=== PATIENT | male | born 1960 | race African-American/Black ===

== ENCOUNTER 2018-05-17 09:25 | Inpatient (IN) | payer MEDICAID ==
[~2018-05-17] VITALS: Ht 175.3 cm; Wt 88.9 kg
[~2018-05-17 09:25] MED LIST: AMLO5TAB4 PO; ASPI-1158 PO; CLON0.3T4; DILT30TA3 PO; FAMO-133; FINA5TAB11 PO; FLUT1DIS3; GUAI100S35; ISOS20TA8 PO; LISI10TA5 PO; LOSA50TA20 PO; NITR0.4T49; OCD PO; PRAV20TA57 PO; SIMV40TA2 PO
[2018-05-17] MEDS ORDERED: ASPIRIN 81MG TABLET PO ONE (10:15)
[2018-05-17] MEDS ORDERED: ONDANSETRON HCL 4MG/2ML INJ IV ONE (12:00)
[2018-05-17] MEDS ORDERED: LABETALOL HCL 20MG/4ML CARPUJECT IV ONE (12:00)
[2018-05-17 13:00] LABS: BASOPHILS % 0.4 % (0.0-2.0); EOSINOPHILS % 0.1 % (0.0-5.0); HEMATOCRIT. 47.5 % (42.0-52.0); LYMPHOCYTES % 12.3 % (20.0-50.0); MEAN CORPUSCULAR HEMOGLOBIN 31.6 pg (28.0-32.0); MEAN CORPUSCULAR VOLUME 93.7 fL (80.0-94.0); MEAN PLATELET VOLUME 8.3 fl (7.4-10.4); MONOCYTES % 7.6 % (2.0-8.0); NEUTROPHILS % 79.6 % (40.0-76.0); PLATELET 350 x1000/uL (130-400); RED BLOOD CELL COUNT 5.08 mill/uL (4.7-6.1); RED CELL DISTRIBUTION WIDTH 14.4 % (11.6-14.6)
[2018-05-17 13:07] LABS: CHLORIDE 96 mEq/L (98-107)
[2018-05-17] MEDS ORDERED: ONDANSETRON HCL 4MG/2ML INJ IV PRN (15:15)
[2018-05-17] MEDS ORDERED: MORPHINE SULFATE 4 MG/ML CPJ (NOT FOR IM USE) IV PRN (15:15)
[2018-05-17] MEDS ORDERED: ACETAMINOPHEN 325MG TABLET PO PRN (15:15)
[2018-05-17] MEDS ORDERED: IPRATROPIUM/ALBUTEROL 0.5-3(2.5)MG/3ML NEB HHN PRN (15:15)
[2018-05-17] MEDS: ONDANSETRON HCL 4MG/2ML INJ IV PRN (22:08)
[2018-05-17 23:00] VITALS: BP 173/108
[2018-05-17] MEDS: ATORVASTATIN CALCIUM 20MG TABLET PO SCH (23:25)
[2018-05-17] MEDS: HYDRALAZINE 20MG/ML VIAL IV PRN (23:26)
[2018-05-17] MEDS: ENOXAPARIN 30MG/0.3ML SYR SUBCUT SCH (23:26)
[2018-05-18] VITALS (8 sets, daily range): BP systolic 127–173; BP diastolic 90–108
[2018-05-18] MEDS: ONDANSETRON HCL 4MG/2ML INJ IV PRN (05:20)
[2018-05-18] MEDS: HYDRALAZINE 20MG/ML VIAL IV PRN (05:28)
[2018-05-18 07:38] LABS: BASOPHILS % 0.4 % (0.0-2.0); EOSINOPHILS % 0.2 % (0.0-5.0); HEMATOCRIT. 49.5 % (42.0-52.0); HEMOGLOBIN. 16.6 g/dL (14.0-18.0); LYMPHOCYTES % 7.9 % (20.0-50.0); MEAN CORPUSCULAR HEMOGLOBIN 31.3 pg (28.0-32.0); MEAN CORPUSCULAR VOLUME 93.3 fL (80.0-94.0); MEAN PLATELET VOLUME 7.8 fl (7.4-10.4); MONOCYTES % 7.4 % (2.0-8.0); NEUTROPHILS % 84.1 % (40.0-76.0); PLATELET 347 x1000/uL (130-400); RED BLOOD CELL COUNT 5.31 mill/uL (4.7-6.1); RED CELL DISTRIBUTION WIDTH 14.5 % (11.6-14.6)
[2018-05-18 08:09] LABS: CHLORIDE 98 mEq/L (98-107)
[2018-05-18] MEDS ORDERED: NITROGLYCERIN OINT 1GM/INCH UDPKT TD SCH (09:00)
[2018-05-18] MEDS ORDERED: POTASSIUM CHLORIDE 20MEQ TABLET SR PO NR (09:00)
[2018-05-18] MEDS: LOSARTAN POTASSIUM 50 MG TABLET PO SCH (10:22)
[2018-05-18] MEDS: ASPIRIN 81MG TABLET PO SCH (10:22)
[2018-05-18] MEDS: CLONIDINE 0.1MG TABLET PO SCH ×3 (10:27→23:09)
[2018-05-18] MEDS: ENOXAPARIN 30MG/0.3ML SYR SUBCUT SCH (13:25)
[2018-05-18] MEDS: METHYLPREDNISOLONE SOD SUCC 40 MG/ML VIAL IV SCH ×2 (17:37→23:09)
[2018-05-18] MEDS: PANTOPRAZOLE 40MG DR TABLET PO SCH (17:37)
[2018-05-18] MEDS: DEXT 5%/0.45% NACL 1000ML 1,000 ML IV SCH (17:40)
[2018-05-18] MEDS: BUDESONIDE 0.5MG/2ML NEB HHN SCH (22:10)
[2018-05-18] MEDS: IPRATROPIUM/ALBUTEROL 0.5-3(2.5)MG/3ML NEB HHN SCH (22:11)
[2018-05-18] MEDS: ATORVASTATIN CALCIUM 20MG TABLET PO SCH (23:09)
[2018-05-19] MEDS: IPRATROPIUM/ALBUTEROL 0.5-3(2.5)MG/3ML NEB HHN SCH ×3 (02:39→14:39)
[2018-05-19 04:30] VITALS: BP 125/83
[2018-05-19] MEDS: CLONIDINE 0.1MG TABLET PO SCH ×2 (05:09→15:30)
[2018-05-19] MEDS: PANTOPRAZOLE 40MG DR TABLET PO SCH (05:09)
[2018-05-19] MEDS: DEXT 5%/0.45% NACL 1000ML 1,000 ML IV SCH (05:10)
[2018-05-19 05:58] LABS: CHLORIDE 100 mEq/L (98-107)
[2018-05-19 06:22] LABS: HEMATOCRIT. 46.1 % (42.0-52.0); HEMOGLOBIN. 15.4 g/dL (14.0-18.0); MEAN CORPUSCULAR HEMOGLOBIN 31.4 pg (28.0-32.0); MEAN CORPUSCULAR VOLUME 93.7 fL (80.0-94.0); PLATELET 305 x1000/uL (130-400); RED BLOOD CELL COUNT 4.92 mill/uL (4.7-6.1); RED CELL DISTRIBUTION WIDTH 14.1 % (11.6-14.6)
[2018-05-19] MEDS: BUDESONIDE 0.5MG/2ML NEB HHN SCH (07:51)
[2018-05-19 08:35] VITALS: BP 132/97
[2018-05-19] MEDS: ASPIRIN 81MG TABLET PO SCH (08:48)
[2018-05-19] MEDS: LOSARTAN POTASSIUM 50 MG TABLET PO SCH (08:48)
[2018-05-19] MEDS ORDERED: ENOXAPARIN 40MG/0.4ML SYR SUBCUT SCH (09:00)
[2018-05-19 11:40] LABS: PLATELET ESTIMATE NORMAL
[2018-05-19 13:27] LABS: CLARITY URINE CLEAR (CLEAR); COLOR URINE YELLOW (YELLOW); KETONES URINE NEGATIVE (NEGATIVE); LEUKOCYTE ESTERASE URINE NEGATIVE (NEGATIVE); NITRITE URINE NEGATIVE (NEGATIVE); OCCULT BLOOD URINE NEGATIVE (NEGATIVE); PROTEIN URINE NEGATIVE (NEGATIVE); SPECIFIC GRAVITY URINE 1.011 (1.005-1.030)
[2018-05-19 13:56] LABS: *AMPHETAMINES SCREEN URINE NEGATIVE (NEGATIVE); *BARBITURATES SCREEN URINE NEGATIVE (NEGATIVE); *BENZODIAZEPINES SCREEN URINE NEGATIVE (NEGATIVE); *COCAINE SCREEN URINE NEGATIVE (NEGATIVE); CANNABINOID URINE SCREEN PRESUMTIVE POSITIVE (NEGATIVE); METHADONE URINE SCREEN NEGATIVE (NEGATIVE); OPIATES URINE SCREEN NEGATIVE (NEGATIVE)
[2018-05-19 13:58] LABS: PHENCYCLIDINE URINE SCREEN NEGATIVE (NEGATIVE)
[2018-05-19 14:06] VITALS: BP 121/91
[2018-05-19 15:25] VITALS: BP 121/88
[2018-05-19] MEDS ORDERED: PREDNISONE 20MG TABLET PO SCH (17:00)
[2018-05-19 17:31] VITALS: BP 121/88
[2018-05-19] MEDS ORDERED: GUAIFENESIN 600MG ER TABLET PO SCH (21:00)
[2018-05-20] MEDS ORDERED: FAMOTIDINE 20MG TABLET PO SCH (09:00)
== END 2018-05-19 18:55 | disposition home or self-care (01) | DRG 133 ==
LOC: ER 09:27 → 8WST 14:53 → EDBEDREQ 14:59 → ENRESERV 21:55
PROVIDERS: ADMIT Internal Medicine; ATTEND Internal Medicine
DX: J96.00 Acute respiratory failure, unspecified whether with hypoxia or hypercapnia (principal); J18.9 Pneumonia, unspecified organism; E87.8 Other disorders of electrolyte and fluid balance, not elsewhere classified; I11.0 Hypertensive heart disease with heart failure; J44.0 Chronic obstructive pulmonary disease with (acute) lower respiratory infection; E87.1 Hypo-osmolality and hyponatremia; J45.901 Unspecified asthma with (acute) exacerbation; I50.32 Chronic diastolic (congestive) heart failure; J44.1 Chronic obstructive pulmonary disease with (acute) exacerbation; E78.5 Hyperlipidemia, unspecified; D72.829 Elevated white blood cell count, unspecified; F12.90 Cannabis use, unspecified, uncomplicated; F17.200 Nicotine dependence, unspecified, uncomplicated; R07.89 Other chest pain; E11.9 Type 2 diabetes mellitus without complications; I25.10 Atherosclerotic heart disease of native coronary artery without angina pectoris; I25.2 Old myocardial infarction; Z95.5 Presence of coronary angioplasty implant and graft; Z88.8 Allergy status to other drugs, medicaments and biological substances; Z79.899 Other long term (current) drug therapy; Z79.82 Long term (current) use of aspirin
CPT/HCPCS: 36415; 71045; 80048; 80305; 83880; 84484; 93005; 93306; 94640; 96374; 96375; 99285; J0360; J1650; J2405; J2920; J3490; J7512; J7620; J7626

== ENCOUNTER 2019-12-28 08:41 | Inpatient (IN) | payer MEDICAID ==
[~2019-12-28] VITALS: Ht 170.2 cm; Wt 90.3 kg
[~2019-12-28 08:41] MED LIST changes: -FAMO-133; -FLUT1DIS3; -GUAI100S35; -LOSA50TA20 PO; +LOSA50TA41 PO; -PRAV20TA57 PO
[2019-12-28] MEDS ORDERED: ONDANSETRON HCL 4MG/2ML INJ IV ONE ×3 (09:30→16:45)
[2019-12-28 10:05] LABS: BASOPHILS % 0.6 % (0.0-2.0); EOSINOPHILS % 4.3 % (0.0-5.0); HEMATOCRIT. 44.6 % (42.0-52.0); HEMOGLOBIN. 15.1 g/dL (14.0-18.0); LYMPHOCYTES % 20.8 % (20.0-50.0); MEAN CORPUSCULAR HEMOGLOBIN 31.8 pg (28.0-32.0); MEAN CORPUSCULAR VOLUME 94.1 fL (80.0-94.0); MONOCYTES % 6.6 % (2.0-8.0); NEUTROPHILS % 67.7 % (40.0-76.0); PLATELET 316 x1000/uL (130-400); RED BLOOD CELL COUNT 4.74 mill/uL (4.7-6.1); RED CELL DISTRIBUTION WIDTH 14.7 % (11.6-14.6)
[2019-12-28 10:10] LABS: CHLORIDE 107 mEq/L (98-107)
[2019-12-28] MEDS ORDERED: AMLO10TA80 MT (10:26)
[2019-12-28] MEDS ORDERED: UMEC1DIS INH (10:26)
[2019-12-28] MEDS ORDERED: PRAV20TA57 MT (10:26)
[2019-12-28] MEDS ORDERED: ASPI-1497 MT (10:26)
[2019-12-28] MEDS ORDERED: LOSA50TA41 MT (10:26)
[2019-12-28] MEDS ORDERED: FUROSEMIDE 40MG/4ML VIAL IVP NR (11:00)
[2019-12-28] MEDS ORDERED: NITROGLYCERIN OINT 1GM/INCH UDPKT TD NR (11:00)
[2019-12-28] MEDS ORDERED: FAMOTIDINE 20MG/2ML VIAL IV ONE (12:00)
[2019-12-28] MEDS ORDERED: METOCLOPRAMIDE HCL 10MG/2ML VIAL IV ONE (12:00)
[2019-12-28] MEDS ORDERED: ASPIRIN 325MG TABLET PO ONE (12:45)
[2019-12-28] MEDS ORDERED: ACETAMINOPHEN 325MG TABLET PO PRN (13:15)
[2019-12-28] MEDS ORDERED: ONDANSETRON HCL 4MG/2ML INJ IV PRN (13:15)
[2019-12-28] MEDS ORDERED: IPRATROPIUM/ALBUTEROL 0.5-3(2.5)MG/3ML NEB NEB PRN (13:15)
[2019-12-28] MEDS ORDERED: DIPHENHYDRAMINE 50MG/ML VIAL IV PRN (13:15)
[2019-12-28] MEDS ORDERED: NA PHOS,M-B/NA PHOS,DI-BA ENEMA 118ML PR PRN (13:15)
[2019-12-28] MEDS ORDERED: MORPHINE SULFATE 2 MG/ML CPJ (NOT FOR IM USE) IV PRN (13:15)
[2019-12-28] MEDS ORDERED: MAGNESIUM/ALUMINUM HYDROXIDE/SIMETHICONE 30ML UDC PO PRN (13:15)
[2019-12-28] MEDS ORDERED: CLONIDINE 0.1MG TABLET PO PRN (13:15)
[2019-12-28] MEDS ORDERED: LORAZEPAM 2MG/ML CPJ IV PRN (13:15)
[2019-12-28] MEDS ORDERED: DOCUSATE SODIUM 100MG CAPSULE PO PRN (13:15)
[2019-12-28] MEDS ORDERED: HYDROCODONE/ACETAMINOPHEN 5/325MG TABLET PO PRN (13:15)
[2019-12-28] MEDS ORDERED: GUAIFENESIN 200MG/10ML SUGAR FREE UDC PO PRN (13:15)
[2019-12-28] MEDS: LOSARTAN POTASSIUM 25 MG TABLET PO SCH (14:28)
[2019-12-28 14:57] LABS: *AMPHETAMINES SCREEN URINE NEGATIVE (NEGATIVE); *BARBITURATES SCREEN URINE NEGATIVE (NEGATIVE); *BENZODIAZEPINES SCREEN URINE NEGATIVE (NEGATIVE); *COCAINE SCREEN URINE NEGATIVE (NEGATIVE); METHADONE URINE SCREEN NEGATIVE (NEGATIVE)
[2019-12-28 14:58] LABS: CANNABINOID URINE SCREEN PRESUMTIVE POSITIVE (NEGATIVE); OPIATES URINE SCREEN NEGATIVE (NEGATIVE); PHENCYCLIDINE URINE SCREEN NEGATIVE (NEGATIVE)
[2019-12-28] MEDS ORDERED: ENOXAPARIN 40MG/0.4ML SYR SUBCUT SCH (15:00)
[2019-12-28 15:33] LABS: CHLORIDE 103 mEq/L (98-107)
[2019-12-28 15:39] LABS: LDL CHOLESTEROL 86 mg/dL (5-100)
[2019-12-28 15:41] LABS: HDL CHOLESTEROL 50 mg/dL (40-59)
[2019-12-28 20:00] VITALS: BP 201/103
[2019-12-28] MEDS: AMLODIPINE 2.5MG TABLET PO SCH (22:58)
[2019-12-28 23:00] VITALS: BP 201/103
[2019-12-29] VITALS: BP 185/85
[2019-12-29] MEDS ORDERED: DEXTROSE 50% WATER 50ML SYRINGE IV PRN (01:00)
[2019-12-29 04:00] VITALS: BP 141/69
[2019-12-29] MEDS: BLOOD SUGAR DIAGNOSTIC STRIP TEST SCH ×2 (06:27→12:10)
[2019-12-29] MEDS: INSULIN LISPRO 100 UNITS/ML SUBCUT SCH ×2 (06:27→12:40)
[2019-12-29 07:04] LABS: BASOPHILS % 0.4 % (0.0-2.0); EOSINOPHILS % 1.1 % (0.0-5.0); HEMATOCRIT. 44.5 % (42.0-52.0); HEMOGLOBIN. 15.1 g/dL (14.0-18.0); LYMPHOCYTES % 19.3 % (20.0-50.0); MEAN CORPUSCULAR HEMOGLOBIN 31.8 pg (28.0-32.0); MEAN CORPUSCULAR VOLUME 93.9 fL (80.0-94.0); MONOCYTES % 8.1 % (2.0-8.0); NEUTROPHILS % 71.1 % (40.0-76.0); PLATELET 301 x1000/uL (130-400); RED BLOOD CELL COUNT 4.74 mill/uL (4.7-6.1); RED CELL DISTRIBUTION WIDTH 14.2 % (11.6-14.6)
[2019-12-29 07:07] LABS: CHLORIDE 101 mEq/L (98-107)
[2019-12-29 07:14] LABS: LDL CHOLESTEROL 94 mg/dL (5-100)
[2019-12-29 07:15] LABS: HDL CHOLESTEROL 46 mg/dL (40-59)
[2019-12-29 07:16] LABS: T4 FREE 0.94 ng/dL (0.76-1.46)
[2019-12-29 08:28] VITALS: BP 162/99
[2019-12-29] MEDS ORDERED: REGADENOSON 0.4 MG/5 ML IV ONE (08:51)
[2019-12-29] MEDS ORDERED: REGADENOSON 0.4 MG/5 ML IV NR (09:00)
[2019-12-29] MEDS: AMLODIPINE 2.5MG TABLET PO SCH (09:00)
[2019-12-29] MEDS ORDERED: ASPIRIN 81MG EC TABLET PO SCH (09:00)
[2019-12-29] MEDS ORDERED: HYDRALAZINE HCL 10MG TABLET PO PRN (09:00)
[2019-12-29] MEDS: LOSARTAN POTASSIUM 25 MG TABLET PO SCH (09:00)
[2019-12-29 12:00] VITALS: BP 155/94
[2019-12-29 12:20] VITALS: BP 155/94
[2019-12-29 14:24] VITALS: BP 135/47
[2019-12-29] MEDS ORDERED: ENOXAPARIN 30MG/0.3ML SYR SUBCUT SCH (21:00)
== END 2019-12-29 15:33 | disposition home or self-care (01) | DRG 203 ==
LOC: ER 08:56 → 8WST 12:46 → ENRESERV 20:16
PROVIDERS: ADMIT Internal Medicine; ATTEND Internal Medicine
DX: M94.0 Chondrocostal junction syndrome [Tietze] (principal); I11.0 Hypertensive heart disease with heart failure; E78.00 Pure hypercholesterolemia, unspecified; I25.10 Atherosclerotic heart disease of native coronary artery without angina pectoris; E11.9 Type 2 diabetes mellitus without complications; E78.5 Hyperlipidemia, unspecified; Z79.899 Other long term (current) drug therapy; Z88.8 Allergy status to other drugs, medicaments and biological substances; Z79.82 Long term (current) use of aspirin; I50.33 Acute on chronic diastolic (congestive) heart failure
CPT/HCPCS: 36415; 71045; 78452; 80048; 80053; 80061; 80305; 82962; 83036; 83735; 83880; 84439; 84443; 84484; 85025; 93005; 93017; 93306; 96374; 99291; A9500; J1650; J1940; J2405; J2765; J2785; J3490

== ENCOUNTER 2020-11-29 19:09 | Inpatient (IN) | payer MEDICAID ==
[~2020-11-29] VITALS: Ht 170.2 cm; Wt 91.0 kg
[~2020-11-29 19:09] MED LIST changes: +AMLO10TA80 MT; -AMLO5TAB4 PO; -ASPI-1158 PO; +ASPI-1497 MT; +LISI10TA26 PO; -LISI10TA5 PO; +LOSA50TA41 MT; -LOSA50TA41 PO; +PRAV20TA57 MT; +UMEC1DIS INH
[2020-11-29 20:51] LABS: BASOPHILS % 0.6 % (0.0-2.0); EOSINOPHILS % 0.1 % (0.0-5.0); HEMATOCRIT. 41.5 % (42.0-52.0); HEMOGLOBIN. 14.4 g/dL (14.0-18.0); LYMPHOCYTES % 16.6 % (20.0-50.0); MEAN CORPUSCULAR HEMOGLOBIN 31.8 pg (28.0-32.0); MEAN CORPUSCULAR VOLUME 91.4 fL (80.0-94.0); MEAN PLATELET VOLUME 7.4 fl (7.4-10.4); NEUTROPHILS % 70.7 % (40.0-76.0); PLATELET 290 x1000/uL (130-400); RED BLOOD CELL COUNT 4.54 mill/uL (4.7-6.1); RED CELL DISTRIBUTION WIDTH 14.3 % (11.6-14.6)
[2020-11-29 20:57] LABS: CHLORIDE 96 mEq/L (98-107)
[2020-11-29] MEDS ORDERED: ASPIRIN 325MG EC TABLET PO NR (22:15)
[2020-11-29] MEDS ORDERED: LOSARTAN POTASSIUM 50 MG TABLET PO ONE (22:30)
[2020-11-30] MEDS ORDERED: HYDRALAZINE HCL 50MG TABLET PO ONE (00:30)
[2020-11-30 02:20] VITALS: BP 174/109
[2020-11-30] MEDS ORDERED: AMLODIPINE 10MG TABLET PO ONE (02:30)
== END 2020-11-30 05:52 | disposition short-term general hospital (02) | DRG 137 ==
LOC: ER 19:09 → MICUSO 11-30 05:27
PROVIDERS: ADMIT Hospitalist; ATTEND Hospitalist
DX: U07.1 COVID-19 (principal); J12.82 Pneumonia due to coronavirus disease 2019; I50.9 Heart failure, unspecified; I11.0 Hypertensive heart disease with heart failure; E11.9 Type 2 diabetes mellitus without complications; E78.00 Pure hypercholesterolemia, unspecified; F17.200 Nicotine dependence, unspecified, uncomplicated; I25.10 Atherosclerotic heart disease of native coronary artery without angina pectoris; E87.1 Hypo-osmolality and hyponatremia; J44.0 Chronic obstructive pulmonary disease with (acute) lower respiratory infection; K59.00 Constipation, unspecified; Z79.899 Other long term (current) drug therapy; Z88.8 Allergy status to other drugs, medicaments and biological substances; I25.2 Old myocardial infarction
CPT/HCPCS: 36415; 71045; 80053; 83880; 84484; 85025; 87426; 93005; 99285; A4315

== ENCOUNTER 2022-09-08 09:18 | Emergency (ER) | payer MEDICAID, OTHER ==
[~2022-09-08] VITALS: Ht 182.9 cm; Wt 113.0 kg
[~2022-09-08 09:18] MED LIST changes: +SIMV-345 PO; -SIMV40TA2 PO
[2022-09-08 10:30] LABS: BASOPHILS % 0.9 % (0.0-2.0); EOSINOPHILS % 2.5 % (0.0-5.0); HEMOGLOBIN. 12.1 g/dL (14.0-18.0); LYMPHOCYTES % 17.9 % (20.0-50.0); MEAN CORPUSCULAR HEMOGLOBIN 28.9 pg (28.0-32.0); MEAN CORPUSCULAR VOLUME 85.7 fL (80.0-94.0); MEAN PLATELET VOLUME 7.3 fl (7.4-10.4); MONOCYTES % 10.2 % (2.0-8.0); NEUTROPHILS % 68.5 % (40.0-76.0); PLATELET 448 x1000/uL (130-400); RED CELL DISTRIBUTION WIDTH 16.9 % (11.6-14.6)
[2022-09-08 10:32] LABS: CHLORIDE 104 mEq/L (98-107)
[2022-09-08 10:36] LABS: PROTHROMBIN TIME 10.9 sec (9.6-11.0)
[2022-09-08] MEDS ORDERED: VISCOUS LIDOCAINE 2% 15 ML UDC MM STA (10:56)
[2022-09-08] MEDS ORDERED: MAGNESIUM/ALUMINUM HYDROXIDE/SIMETHICONE 30ML UDC PO ONE (11:00)
[2022-09-08] MEDS ORDERED: FAMOTIDINE 20MG TABLET PO ONE (11:00)
[2022-09-08] MEDS ORDERED: METHYLPREDNISOLONE SOD SUCC 125 MG/2 ML VIAL IV ONE (11:00)
[2022-09-08] MEDS ORDERED: IPRATROPIUM/ALBUTEROL 0.5-3(2.5)MG/3ML NEB HHN ONE (11:00)
[2022-09-08] MEDS ORDERED: P50 MT (14:29)
[2022-09-08] MEDS ORDERED: ALBU6.7H3 INH (14:29)
[2022-09-08 15:27] VITALS: BP 167/99
== END 2022-09-08 15:34 | disposition home or self-care (01) ==
LOC: ER 09:41
DX: J44.1 Chronic obstructive pulmonary disease with (acute) exacerbation (principal); R10.12 Left upper quadrant pain; I25.10 Atherosclerotic heart disease of native coronary artery without angina pectoris; I11.0 Hypertensive heart disease with heart failure; I50.9 Heart failure, unspecified; E78.00 Pure hypercholesterolemia, unspecified; I25.2 Old myocardial infarction; F17.210 Nicotine dependence, cigarettes, uncomplicated; Z79.899 Other long term (current) drug therapy; Z79.82 Long term (current) use of aspirin; Z88.8 Allergy status to other drugs, medicaments and biological substances
CPT/HCPCS: 36415; 71045; 74176; 80053; 83690; 83880; 84484; 85025; 85610; 93005; 94640; 96374; 99285; 99406; J2930; Z7610

== ENCOUNTER 2023-09-10 06:43 | Emergency (ER) | payer OTHER ==
[~2023-09-10] VITALS: Ht 177.8 cm; Wt 84.0 kg
[~2023-09-10 06:43] MED LIST changes: +ALBU6.7H3 INH; +P50 MT
[2023-09-10 06:47] VITALS: TEMP 98.8
[2023-09-10] MEDS: ALBUTEROL (0.083%) 2.5MG/3ML NEB HHN STA (07:30)
[2023-09-10 07:33] LABS: BASOPHILS % 0.7 % (0.0-2.0); EOSINOPHILS % 1.9 % (0.0-5.0); HEMOGLOBIN. 12.9 g/dL (14.0-18.0); LYMPHOCYTES % 14.3 % (20.0-50.0); MEAN CORPUSCULAR HEMOGLOBIN 31.1 pg (28.0-32.0); MEAN CORPUSCULAR HGB CONC 34.9 g/dL (31.0-37.0); MEAN CORPUSCULAR VOLUME 89.3 fL (80.0-94.0); MEAN PLATELET VOLUME 6.8 fl (7.4-10.4); MONOCYTES % 10.7 % (2.0-8.0); NEUTROPHILS % 72.4 % (40.0-76.0); PLATELET 361 x1000/uL (130-400); RED BLOOD CELL COUNT 4.15 mill/uL (4.7-6.1); RED CELL DISTRIBUTION WIDTH 15.3 % (11.6-14.6); WHITE BLOOD COUNT 5.6 x1000/uL (4.5-11.0)
[2023-09-10] MEDS: IPRATROPIUM BROMIDE (0.02%) 0.5MG/2.5ML NEB HHN STA (07:33)
[2023-09-10 07:35] VITALS: PULSE 81; RESP 12; O2SAT 98
[2023-09-10 07:48] LABS: CARBON DIOXIDE 22 mEq/L (21-32); CHLORIDE 102 mEq/L (98-107); POTASSIUM 4.4 mEq/L (3.5-5.1); SODIUM 133 mEq/L (136-145)
[2023-09-10 07:49] LABS: CALCIUM 9.1 mg/dL (8.7-10.4)
[2023-09-10 07:54] LABS: CREATININE 1.2 mg/dL (0.6-1.3); GLUCOSE 142 mg/dL (70-105); TROPONIN I HIGH SENSITIVITY 5 ng/L (3.0-53); UREA NITROGEN BLOOD 11 mg/dL (9-23)
[2023-09-10] MEDS ORDERED: P50 PO (08:18)
[2023-09-10] MEDS ORDERED: ALBU6.7H15 INH (08:19)
[2023-09-10] MEDS: MAGNESIUM 2 G PREMIX 50 ML IV STA (08:31)
[2023-09-10] MEDS: METHYLPREDNISOLONE SOD SUCC 125MG/2ML (ACT-O-VIAL) IV STA (08:31)
[2023-09-10 08:32] VITALS: BP 131/68; PULSE 101; RESP 22
== END 2023-09-10 10:15 | disposition home or self-care (01) ==
LOC: ER 06:43
DX: J44.1 Chronic obstructive pulmonary disease with (acute) exacerbation (principal); E78.00 Pure hypercholesterolemia, unspecified; J45.909 Unspecified asthma, uncomplicated; I11.0 Hypertensive heart disease with heart failure; I50.9 Heart failure, unspecified; Z88.8 Allergy status to other drugs, medicaments and biological substances; Z79.899 Other long term (current) drug therapy
CPT/HCPCS: 80048; 83880; 85025; 84484; 36415; 71045; 93005; 94644; 96365; 96375; 99285; J3475; J2930; Z7610 ×3

== ENCOUNTER 2023-12-13 13:42 | Emergency (ER) | payer MEDICAID, OTHER ==
[~2023-12-13] VITALS: Ht 170.2 cm; Wt 100.0 kg
[~2023-12-13 13:42] MED LIST changes: +ALBU6.7H15 INH; +FLUT1DIS3 INH; +IPRA3AMP9 NEB; +LEVO-65 MT; +P20 MT; -P50 MT; +TAMS-11 MT
[2023-12-13 13:43] VITALS: O2SAT 100
[2023-12-13 13:44] VITALS: BP 186/95; PULSE 74; RESP 18; TEMP 98.5; O2SAT 100
[2023-12-13] MEDS ORDERED: ALBU05 NEB (15:23)
== END 2023-12-13 19:32 | disposition home or self-care (01) ==
LOC: ER 13:42
DX: J44.9 Chronic obstructive pulmonary disease, unspecified (principal); R05.9 Cough, unspecified; J45.909 Unspecified asthma, uncomplicated; I11.0 Hypertensive heart disease with heart failure; I50.9 Heart failure, unspecified; I25.10 Atherosclerotic heart disease of native coronary artery without angina pectoris; E11.9 Type 2 diabetes mellitus without complications; E78.00 Pure hypercholesterolemia, unspecified; I25.2 Old myocardial infarction; Z79.899 Other long term (current) drug therapy
CPT/HCPCS: 71045; 93005; 99283